=== PATIENT | male | born 1970 | race Two or more races ===

== ENCOUNTER 2023-09-14 10:07 | Emergency (ER) | payer OTHER ==
[~2023-09-14] VITALS: Ht 172.7 cm; Wt 71.2 kg
[~2023-09-14 10:07] MED LIST: TOPROL XL50 M1 PO
[2023-09-14] MEDS ORDERED: WELLBUTRIN XL300 MG PO (10:21)
[2023-09-14] MEDS ORDERED: VALTREX1000 MG PO (10:22)
[2023-09-14] MEDS ORDERED: ABILIFY5 MG (10:22)
[2023-09-14] MEDS ORDERED: VASOTEC10 MG (10:22)
[2023-09-14] MEDS ORDERED: AMBIEN10 MG PO (10:22)
[2023-09-14] MEDS ORDERED: CRESTOR40 MG PO (10:23)
[2023-09-14] MEDS ORDERED: OMEPRAZOLE-BIC1 EAC1 (10:23)
[2023-09-14] MEDS ORDERED: LYRICA PO (10:23)
[2023-09-14] MEDS ORDERED: ADCIRCA20 MG (10:24)
[2023-09-14] MEDS ORDERED: ECOTRIN81 MG (10:24)
== END 2023-09-14 15:17 | disposition home or self-care (01) ==
LOC: ER 10:07
DX: S01.421A Laceration with foreign body of right cheek and temporomandibular area, initial encounter (principal); W18.39XA Other fall on same level, initial encounter; Y93.89 Activity, other specified; Y92.89 Other specified places as the place of occurrence of the external cause; I10 Essential (primary) hypertension